=== PATIENT | female | born 1990 | race Caucasian/White ===

== ENCOUNTER → 2018-02-13 | Outpatient (REF) | payer OTHER ==
[~2018-02-13] MED LIST: LOR7.5/325 PO; NO ROUTINE MEDS; OND8 PO; TAM4 PO
[2018-02-13 18:05] LABS: PLATELET COUNT, AUTOMATED 227 K/uL (150-450)
== END ==
LOC: ZZSTITCHES 17:55
PROVIDERS: ATTEND Physician Assistant
DX: R50.9 Fever, unspecified (principal); R53.83 Other fatigue; M79.1 Myalgia
CPT/HCPCS: 82040; 82247; 82310; 82374; 82435; 82565; 82947; 84075; 84132; 84155; 84295; 84450; 84460; 84520; 85025

== ENCOUNTER → 2018-12-02 | Outpatient (REF) ==
[~2018-12-02] MED LIST changes: +NORG1TAB96 PO
[2018-12-02 09:35] LABS: LDL CHOLESTEROL 114 mg/dl
== END ==
DX: Z02.9 Encounter for administrative examinations, unspecified (principal)